=== PATIENT | male | born 1955 | race African-American/Black ===

== ENCOUNTER 2023-10-31 15:27 | Emergency (ER) | payer MEDICAID, OTHER ==
[~2023-10-31] VITALS: Ht 182.9 cm; Wt 108.0 kg
[~2023-10-31 15:27] MED LIST: LISINOPRIL PO; LORA2TAB95 PO; SOMA PO; ZOLP10TA2 PO
[2023-10-31 15:34] VITALS: O2SAT 99
[2023-10-31] MEDS: ACETAMINOPHEN 325MG TABLET PO ONE (15:54)
[2023-10-31] MEDS: TETANUS, DIPHTHERIA, PERTUSSIS VAC/PF 0.5ML (>10YR OLD) IM ONE (15:54)
[2023-10-31] MEDS ORDERED: BO1 TP (17:13)
[2023-10-31 17:46] VITALS: BP 138/79; PULSE 85; RESP 16; TEMP 98.1
== END 2023-10-31 18:11 | disposition home or self-care (01) ==
LOC: ER 15:27
DX: S00.81XA Abrasion of other part of head, initial encounter (principal); X58.XXXA Exposure to other specified factors, initial encounter; Y93.89 Activity, other specified; Y92.89 Other specified places as the place of occurrence of the external cause; Y99.8 Other external cause status
CPT/HCPCS: 70450; 90715; 99284; Z7610